=== PATIENT | male | born 1965 | race Caucasian/White ===

== ENCOUNTER → 2017-01-08 | Outpatient (REF) | payer OTHER ==
[2017-01-08 12:24] LABS: ALBUMIN/GLOBULIN RATIO 1.38 (1.00-1.93); ALKALINE PHOSPHATASE 60 U/L (45-117); ALT/SGPT 34 U/L (12-78); ANION GAP 6 MEQ/L (8-16); AST/SGOT 22 U/L (15-37); BILIRUBIN,TOTAL 0.5 MG/DL (0.2-1.0); BLOOD UREA NITROGEN 15 MG/DL (7-18); CALCIUM LEVEL 8.8 MG/DL (8.5-10.1); CARBON DIOXIDE LEVEL 28 MEQ/L (21-32); CHLORIDE LEVEL 105 MEQ/L (98-107); CHOLESTEROL LEVEL 146 MG/DL (<200); CREATININE FOR GFR 1.05 MG/DL (0.70-1.30); GLOMERULAR FILTRATION RATE > 60.0 (>60); GLUCOSE, FASTING 107 MG/DL (70-105); POTASSIUM SERUM 4.1 MEQ/L (3.5-5.1); SODIUM LEVEL 139 MEQ/L (136-145); TOTAL PROTEIN 6.9 GM/DL (6.4-8.2); TRIGLYCERIDES LEVEL 157 MG/DL (<150)
== END ==
LOC: M SFHCCLAY 06:55
PROVIDERS: ATTEND Family Medicine
DX: E78.2 Mixed hyperlipidemia (principal); I10 Essential (primary) hypertension

== ENCOUNTER → 2017-07-30 | Outpatient (REF) | payer OTHER ==
[2017-07-30 11:41] LABS: ALBUMIN 4.1 GM/DL (3.2-5.2); ALBUMIN/GLOBULIN RATIO 1.37 (1.00-1.93); ALKALINE PHOSPHATASE 53 U/L (45-117); ALT/SGPT 36 U/L (12-78); ANION GAP 4 MEQ/L (8-16); AST/SGOT 21 U/L (7-37); BILIRUBIN,TOTAL 0.6 MG/DL (0.2-1.0); BLOOD UREA NITROGEN 14 MG/DL (7-18); CALCIUM LEVEL 8.6 MG/DL (8.5-10.1); CARBON DIOXIDE LEVEL 33 MEQ/L (21-32); CHLORIDE LEVEL 106 MEQ/L (98-107); CHOLESTEROL LEVEL 158 MG/DL (<200); CHOLESTEROL RISK RATIO 5.448 (<5); CREATININE FOR GFR 0.95 MG/DL (0.70-1.30); GLOMERULAR FILTRATION RATE > 60.0 (>56); GLUCOSE, FASTING 94 MG/DL (70-105); HDL CHOLESTEROL 29 MG/DL (>40); NON-HDL-C 129 MG/DL; POTASSIUM SERUM 4.2 MEQ/L (3.5-5.1); SODIUM LEVEL 143 MEQ/L (136-145); TOTAL PROTEIN 7.1 GM/DL (6.4-8.2); TRIGLYCERIDES LEVEL 155 MG/DL (<150)
== END ==
LOC: M SFHCCLAY 06:53
DX: E78.2 Mixed hyperlipidemia (principal); I10 Essential (primary) hypertension

== ENCOUNTER → 2018-04-07 | Outpatient (REF) | payer OTHER ==
[2018-04-07 22:04] LABS: ALKALINE PHOSPHATASE 59 U/L (45-117); ALT/SGPT 29 U/L (12-78); ANION GAP 7 MEQ/L (8-16); AST/SGOT 15 U/L (7-37); BILIRUBIN,TOTAL 0.4 MG/DL (0.2-1.0); BLOOD UREA NITROGEN 16 MG/DL (7-18); CALCIUM LEVEL 8.4 MG/DL (8.5-10.1); CARBON DIOXIDE LEVEL 27 MEQ/L (21-32); CHLORIDE LEVEL 108 MEQ/L (98-107); CREATININE FOR GFR 1.04 MG/DL (0.70-1.30); GLOMERULAR FILTRATION RATE > 60.0 (>56); GLUCOSE, FASTING 93 MG/DL (70-100); POTASSIUM SERUM 4.3 MEQ/L (3.5-5.1); SODIUM LEVEL 142 MEQ/L (136-145); TRIGLYCERIDES LEVEL 221 MG/DL (<150)
[2018-04-07 22:08] LABS: ALBUMIN/GLOBULIN RATIO 1.33 (1.00-1.93); CHOLESTEROL LEVEL 128 MG/DL (<200); HDL CHOLESTEROL 25 MG/DL (>40); LDL CHOLESTEROL 58.8 MG/DL (<100); NON-HDL-C 103 MG/DL
== END ==
LOC: M SFHCCLAY 07:00
DX: E78.2 Mixed hyperlipidemia (principal); I10 Essential (primary) hypertension

== ENCOUNTER → 2018-04-28 | Outpatient (REF) | payer OTHER ==
[2018-04-29 11:54] LABS: ANION GAP 7 MEQ/L (8-16); BLOOD UREA NITROGEN 16 MG/DL (7-18); CALCIUM LEVEL 9.2 MG/DL (8.5-10.1); CARBON DIOXIDE LEVEL 31 MEQ/L (21-32); CHLORIDE LEVEL 103 MEQ/L (98-107); CREATININE FOR GFR 1.08 MG/DL (0.70-1.30); GLOMERULAR FILTRATION RATE > 60.0 (>56); GLUCOSE, FASTING 115 MG/DL (70-100); POTASSIUM SERUM 3.7 MEQ/L (3.5-5.1); SODIUM LEVEL 141 MEQ/L (136-145)
== END ==
LOC: M SFHCCLAY 15:53
DX: I10 Essential (primary) hypertension (principal)

== ENCOUNTER → 2018-05-31 | Outpatient (CLI) | payer OTHER ==
[2018-05-31 13:19] LABS: ANION GAP 4 MEQ/L (8-16); BLOOD UREA NITROGEN 15 MG/DL (7-18); CALCIUM LEVEL 9.7 MG/DL (8.5-10.1); CARBON DIOXIDE LEVEL 33 MEQ/L (21-32); CHLORIDE LEVEL 103 MEQ/L (98-107); CREATININE FOR GFR 1.04 MG/DL (0.70-1.30); GLOMERULAR FILTRATION RATE > 60.0 (>56); GLUCOSE, FASTING 97 MG/DL (70-100); POTASSIUM SERUM 4.8 MEQ/L (3.5-5.1); SODIUM LEVEL 140 MEQ/L (136-145)
== END ==
LOC: M WUC 08:57
DX: I10 Essential (primary) hypertension (principal)
CPT/HCPCS: 80048

== ENCOUNTER → 2018-07-25 | Outpatient (REF) | payer OTHER | LOC: M LAB REF 19:14 | PROVIDERS: ATTEND Physician Assistant | DX: L02.212 Cutaneous abscess of back [any part, except buttock and flank] (principal) ==

== ENCOUNTER → 2019-03-05 | Outpatient (REF) | payer OTHER ==
[2019-03-05 13:32] LABS: BLOOD UREA NITROGEN 16 MG/DL (7-18); CALCIUM LEVEL 9.2 MG/DL (8.5-10.1); CARBON DIOXIDE LEVEL 32 MEQ/L (21-32); CHLORIDE LEVEL 105 MEQ/L (98-107); CREATININE FOR GFR 1.09 MG/DL (0.70-1.30); GLOMERULAR FILTRATION RATE > 60.0 (>56); GLUCOSE, FASTING 106 MG/DL (70-100); POTASSIUM SERUM 3.8 MEQ/L (3.5-5.1); SODIUM LEVEL 141 MEQ/L (136-145)
== END ==
LOC: M SFHCCLAY 07:34
PROVIDERS: ATTEND Family Medicine
DX: I10 Essential (primary) hypertension (principal)

== ENCOUNTER → 2019-12-08 | Outpatient (REF) | payer OTHER ==
[2019-12-08 16:55] LABS: BLOOD UREA NITROGEN 19 MG/DL (7-18); CALCIUM LEVEL 9.4 MG/DL (8.5-10.1); CARBON DIOXIDE LEVEL 33 MEQ/L (21-32); CHLORIDE LEVEL 103 MEQ/L (98-107); CREATININE FOR GFR 1.12 MG/DL (0.70-1.30); GLOMERULAR FILTRATION RATE > 60.0 (>56); GLUCOSE, FASTING 99 MG/DL (70-100); POTASSIUM SERUM 3.5 MEQ/L (3.5-5.1); SODIUM LEVEL 141 MEQ/L (136-145)
[2019-12-08 17:44] LABS: HEMOGLOBIN A1c 5.7 %
== END ==
LOC: M SFHCCLAY 09:56
PROVIDERS: ATTEND Family Medicine
DX: I11.9 Hypertensive heart disease without heart failure (principal); Z13.1 Encounter for screening for diabetes mellitus; Z83.3 Family history of diabetes mellitus

== ENCOUNTER → 2020-03-10 | Outpatient (REF) | payer BC ==
[2020-04-25 13:55] LABS: BLOOD UREA NITROGEN 17 MG/DL (7-18); CALCIUM LEVEL 8.7 MG/DL (8.5-10.1); CARBON DIOXIDE LEVEL 31 MEQ/L (21-32); CHLORIDE LEVEL 107 MEQ/L (98-107); CREATININE FOR GFR 1.09 MG/DL (0.70-1.30); GLOMERULAR FILTRATION RATE > 60.0 (>56); GLUCOSE, FASTING 87 MG/DL (70-100); POTASSIUM SERUM 3.8 MEQ/L (3.5-5.1); SODIUM LEVEL 140 MEQ/L (136-145)
== END ==
LOC: M SFHCCLAY 15:54
PROVIDERS: ATTEND Family Medicine
DX: I11.9 Hypertensive heart disease without heart failure (principal)

== ENCOUNTER → 2020-08-08 | Outpatient (REF) | payer BC ==
[2020-08-08 13:26] LABS: BLOOD UREA NITROGEN 18 MG/DL (7-18); CALCIUM LEVEL 9.2 MG/DL (8.5-10.1); CARBON DIOXIDE LEVEL 33 MEQ/L (21-32); CHLORIDE LEVEL 102 MEQ/L (98-107); CREATININE FOR GFR 1.29 MG/DL (0.70-1.30); GLOMERULAR FILTRATION RATE > 60.0 (>56); GLUCOSE, FASTING 114 MG/DL (70-100); POTASSIUM SERUM 3.7 MEQ/L (3.5-5.1); SODIUM LEVEL 140 MEQ/L (136-145)
== END ==
LOC: M SFHCCLAY 07:32
PROVIDERS: ATTEND Family Medicine
DX: I11.9 Hypertensive heart disease without heart failure (principal)

== ENCOUNTER → 2021-02-13 | Outpatient (REF) | payer BC ==
[2021-02-13 13:05] LABS: HEMOGLOBIN A1c 5.2 %
[2021-02-13 13:24] LABS: BLOOD UREA NITROGEN 22 MG/DL (7-18); CALCIUM LEVEL 8.7 MG/DL (8.5-10.1); CARBON DIOXIDE LEVEL 31 MEQ/L (21-32); CHLORIDE LEVEL 104 MEQ/L (98-107); CHOLESTEROL LEVEL 140 MG/DL (<200); CREATININE FOR GFR 1.19 MG/DL (0.70-1.30); GLOMERULAR FILTRATION RATE > 60.0 (>56); GLUCOSE, FASTING 94 MG/DL (70-100); HDL CHOLESTEROL 25 MG/DL (>40); LDL CHOLESTEROL 66 MG/DL (<100); NON-HDL-C 115 MG/DL; POTASSIUM SERUM 3.7 MEQ/L (3.5-5.1); SODIUM LEVEL 139 MEQ/L (136-145); TRIGLYCERIDES LEVEL 244 MG/DL (<150)
== END ==
LOC: M SFHCCLAY 07:02
PROVIDERS: ATTEND Family Medicine
DX: R73.03 Prediabetes (principal); E78.2 Mixed hyperlipidemia; I11.9 Hypertensive heart disease without heart failure

== ENCOUNTER 2024-04-29 01:39 | Emergency (ER) | payer BC ==
[~2024-04-29] VITALS: Ht 175.3 cm; Wt 89.4 kg
[2024-04-29 01:46] VITALS: TEMP 97.5
[2024-04-29 02:48] LABS: BASO # 0.1 10^3/uL (0.0-0.2); BASO % 1.1 % (0.0-1.0); EOS # 0.3 10^3/uL (0.0-0.5); EOS % 3.2 % (0.0-3.0); HEMATOCRIT 43.4 % (42.0-52.0); HEMOGLOBIN 15.4 g/dl (13.5-17.5); LYMPH # 1.9 10^3/uL (1.5-5.0); LYMPH % 21.7 % (24.0-44.0); MEAN CORPUSCULAR HGB CONC 35.5 g/dl (32.0-36.5); MEAN CORPUSCULAR VOLUME 87.5 fl (80.0-96.0); MONO # 0.6 10^3/uL (0.0-0.8); MONO % 6.6 % (2.0-8.0); NEUTROPHILS # 5.8 10^3/uL (1.5-8.5); NEUTROPHILS % 67.2 % (36.0-66.0); PLATELET COUNT, AUTOMATED 250 10^3/uL (150-450); RED BLOOD COUNT 4.96 10^6/uL (4.30-6.10); WHITE BLOOD COUNT 8.5 10^3/uL (4.0-10.0)
[2024-04-29 03:12] LABS: LIPASE 55 U/L (12-53)
[2024-04-29 03:13] LABS: CK-MB VALUE MASS < 1.0 NG/ML (<3.6)
[2024-04-29 03:14] LABS: ALBUMIN 3.8 G/DL (3.2-5.2); ALKALINE PHOSPHATASE 65 U/L (46-116); ALT/SGPT 28 U/L (7.0-40); AST/SGOT 18 U/L (<34); BILIRUBIN,DIRECT 0.2 MG/DL (<0.4); BILIRUBIN,TOTAL 0.6 MG/DL (0.3-1.2); BLOOD UREA NITROGEN 15 MG/DL (9-23); CALCIUM LEVEL 9.2 MG/DL (8.5-10.1); CARBON DIOXIDE LEVEL 31 MMOL/L (20-31); CHLORIDE LEVEL 106 MMOL/L (98-107); CPK CREATINE PHOSPHOKINASE 97 U/L (46-171); GLOMERULAR FILTRATION RATE > 60.0 (>56); GLUCOSE, FASTING 147 MG/DL (60-100); MB/CK RELATIVE INDEX 1.03 (< OR =4); POTASSIUM SERUM 3.5 MMOL/L (3.5-5.1); SODIUM LEVEL 139 MMOL/L (136-145); TOTAL PROTEIN 6.8 G/DL (5.7-8.2)
[2024-04-29 04:33] LABS: CK-MB VALUE MASS < 1.0 NG/ML (<3.6); CPK CREATINE PHOSPHOKINASE 100 U/L (46-171)
[2024-04-29 05:39] VITALS: BP 112/88; O2SAT 99
[2024-04-29] MEDS ORDERED: LEVS0.124 SL (06:08)
== END 2024-04-29 07:06 | disposition home or self-care (01) ==
LOC: M ED 01:39
DX: K80.66 Calculus of gallbladder and bile duct with acute and chronic cholecystitis without obstruction (principal); R00.1 Bradycardia, unspecified; I10 Essential (primary) hypertension; F17.290 Nicotine dependence, other tobacco product, uncomplicated

== ENCOUNTER 2024-05-19 13:11 | Day surgery (SDC) | payer BC ==
[~2024-05-19] VITALS: Ht 175.3 cm; Wt 89.3 kg
[~2024-05-19 13:11] MED LIST: CHLO25TA PO; HYOS125TA SL; LEVS0.124 SL
[2024-05-19] MEDS ORDERED: propofoL 200 MG/20 ML VIAL As Ordered ONE (14:14)
[2024-05-19] MEDS ORDERED: ROCURONIUM BROMIDE 50MG/5ML VIAL As Ordered ONE (14:14)
[2024-05-19] MEDS ORDERED: LIDOCAINE 2% 100MG/5ML SDV (FOR ANES.) As Ordered ONE (14:14)
[2024-05-19] MEDS ORDERED: fentaNYL 100 MCG/2 ML INJECTION As Ordered ONE (14:14)
[2024-05-19] MEDS ORDERED: MIDAZOLAM INJ 2MG/2ML VIAL As Ordered ONE (14:15)
[2024-05-19] MEDS: CelecoXIB 400 MG CAP PO ONE (14:55)
[2024-05-19] MEDS: ceFAZolin SOD 2 GM in IV 1 EA IV ONE (15:22)
[2024-05-19] MEDS ORDERED: SUGAMMADEX SODIUM 500 MG/5 ML VIAL (BRIDION) As Ordered ONE (15:40)
[2024-05-19] MEDS ORDERED: ACETAMINOPHEN 1000MG 100ML IV BAG As Ordered ONE (15:40)
[2024-05-19] MEDS ORDERED: ONDANSETRON 4MG 2ML VIAL As Ordered ONE (15:40)
[2024-05-19] MEDS ORDERED: KETOROLAC 60MG 2ML VIAL As Ordered ONE (15:40)
[2024-05-19] MEDS: INDOCYANINE GREEN 25MG VIAL (IC-GREEN) IV ONE (15:42)
[2024-05-19] MEDS: LIDOCAINE 1% SDV 30ML VIAL As Ordered ONE (17:40)
[2024-05-19] MEDS ORDERED: diphenhydrAMINE 50MG/ML VIAL IV PRN (18:05)
[2024-05-19] MEDS ORDERED: fentaNYL 100 MCG/2 ML INJECTION IV PRN (18:05)
[2024-05-19] MEDS ORDERED: LR 1,000 ML IV SCH (18:05)
[2024-05-19] MEDS ORDERED: METOCLOPRAMIDE INJ 10MG/2ML VIAL IV PRN (18:05)
[2024-05-19] MEDS ORDERED: MEPERIDINE 25 MG/ML 1ML VIAL IV PRN (18:05)
[2024-05-19] MEDS ORDERED: HYDROMORPHONE HCL 0.5 MG/ 0.5 ML SYRINGE IV PRN (18:05)
[2024-05-19] MEDS ORDERED: oxyCODONE 5MG TAB PO PRN (18:05)
[2024-05-19] MEDS ORDERED: ONDANSETRON 4MG 2ML VIAL IV PRN (18:05)
[2024-05-19 19:08] VITALS: BP 126/65; TEMP 97.5; O2SAT 98
[2024-05-19] MEDS ORDERED: NORCO, ANEXSIA 5/325MG TABLET (HYDROcodone/ACETAMINOPHEN) PO PRN ×2 (19:15→19:20)
[2024-05-19] MEDS ORDERED: KETOROLAC 30 MG/ML 1ML VIAL IV SCH (22:00)
== END 2024-05-19 19:51 | disposition home or self-care (01) ==
LOC: M OPP 13:11
PROVIDERS: ATTEND Surgery
DX: K80.10 Calculus of gallbladder with chronic cholecystitis without obstruction (principal); K76.0 Fatty (change of) liver, not elsewhere classified; I10 Essential (primary) hypertension; F17.220 Nicotine dependence, chewing tobacco, uncomplicated; Z79.899 Other long term (current) drug therapy; Z91.013 Allergy to seafood
CPT/HCPCS: 47562; 88304; J0131; J0665; J0690; J1100; J1885; J2250; J2405; J3010; Q9968; S2900

== ENCOUNTER → 2024-09-14 | Outpatient (CLI) | payer BC ==
[2024-09-14 14:05] LABS: HEMATOCRIT 47.5 % (42.0-52.0); HEMOGLOBIN 15.6 g/dl (13.5-17.5); MEAN CORPUSCULAR HGB CONC 32.8 g/dl (32.0-36.5); MEAN CORPUSCULAR VOLUME 91.3 fl (80.0-96.0); PLATELET COUNT, AUTOMATED 253 10^3/uL (150-450); WHITE BLOOD COUNT 7.7 10^3/uL (4.0-10.0)
[2024-09-14 14:41] LABS: ALBUMIN 3.9 G/DL (3.2-5.2); ALKALINE PHOSPHATASE 59 U/L (40-129); ALT/SGPT 50 U/L (7.0-40); AST/SGOT 34 U/L (<34); BILIRUBIN,TOTAL 0.5 MG/DL (0.3-1.2); BLOOD UREA NITROGEN 17 MG/DL (9-23); CALCIUM LEVEL 9.3 MG/DL (8.5-10.1); CARBON DIOXIDE LEVEL 31 MMOL/L (20-31); CHLORIDE LEVEL 106 MMOL/L (98-107); CHOLESTEROL LEVEL 153 MG/DL (<200); CHOLESTEROL RISK RATIO 4.78 (<5); CREATININE FOR GFR 0.88 MG/DL (0.70-1.30); GLOMERULAR FILTRATION RATE > 60.0 (>56); GLUCOSE, FASTING 88 MG/DL (60-100); POTASSIUM SERUM 4.3 MMOL/L (3.5-5.1); PROSTATIC SPECIFIC AG MONITOR 3.19 NG/ML (< 4.00); SODIUM LEVEL 144 MMOL/L (136-145); THYROID STIMULATING HORMONE 2.921 uIU/ML (0.55-4.78); TRIGLYCERIDES LEVEL 165 MG/DL (<150)
== END ==
LOC: M WUC 08:05
PROVIDERS: ATTEND Physician Assistant Medical
DX: I10 Essential (primary) hypertension (principal); E78.6 Lipoprotein deficiency; Z12.5 Encounter for screening for malignant neoplasm of prostate; Z86.39 Personal history of other endocrine, nutritional and metabolic disease